=== PATIENT | male | born 1955 | race Caucasian/White ===

== ENCOUNTER → 2016-11-24 | Outpatient (CLI) | payer OTHER | LOC: RAD 08:32 | PROVIDERS: ATTEND Otolaryngology | DX: C44.42 Squamous cell carcinoma of skin of scalp and neck (principal); M50.322 Other cervical disc degeneration at C5-C6 level; M50.321 Other cervical disc degeneration at C4-C5 level | CPT/HCPCS: 70491; Q9967 ==

== ENCOUNTER → 2017-03-05 | Outpatient (CLI) | payer OTHER ==
--- NOTE | 2017-03-05 11:48 | Diagnostic Imaging Report ---
Indication: Palpable nodule within the left neck soft tissues, recent diagnosis of left neck squamous cell carcinoma. Comparison: None. Discussion: Limited targeted sonographic evaluation of the left neck soft tissues was performed. Just deep to the previous surgical scar is a 1.2 x 0.5 x 0.6 cm hypoechoic fluid collection which likely represents a small seroma. Just adjacent to this area is a 0.6 cm hypoechoic avascular nodule which is indeterminate though could represent a small lymph node. No pathologically enlarged lymph nodes identified. No drainable fluid collection identified. Impression: 1. Tiny seroma just deep to the surgical scar within the left neck. 2. A 6 mm solid appearing nodule within the adjacent subcutaneous soft tissues shows no internal color Doppler blood flow. Nodule is indeterminate though could represent a small lymph node. Dictated by: Dictated on workstation # [id number]
== END ==
LOC: RAD 09:34
PROVIDERS: ATTEND Otolaryngology
DX: C44.42 Squamous cell carcinoma of skin of scalp and neck (principal)
CPT/HCPCS: 76536